=== PATIENT | female | born 1995 | race African-American/Black ===

== ENCOUNTER 2018-07-21 19:43 | Emergency (ER) | payer MEDICAID ==
[~2018-07-21] VITALS: Ht 170.2 cm; Wt 59.0 kg
[2018-07-21 19:59] VITALS: BP 125/79
[2018-07-21] MEDS ORDERED: methylPREDNISolone SOD SUCC 125 MG/2 ML VL IM ONE (21:30)
[2018-07-21] MEDS ORDERED: KETOROLAC TROMETH 60MG/2ML VIAL IM ONE (21:30)
== END 2018-07-21 22:00 | disposition home or self-care (01) ==
LOC: ER 19:43
DX: M65.4 Radial styloid tenosynovitis [de Quervain] (principal); Z88.6 Allergy status to analgesic agent
CPT/HCPCS: 96372; 99284; J1885; J2930